=== PATIENT | female | born 1960 | race Caucasian/White ===

== ENCOUNTER → 2019-04-19 | Day surgery (SDC) | payer MEDICARE ==
[~2019-04-19] MED LIST: BACITRACIN 50,000 UNIT VIAL ONE; BENZONATATE100 MG PO; BUPIVACAINE HCL 0.5% INJ 30 ML VIAL INJ ONE; BUSPIRONE HCL5 MG PO; CEFAZOLIN SOD 1 GM/NS 50ML 100 ML IV ONE; DEPAKOTE500 MG PO; DEXAMETHASONE SOD PHOS INJ 4 MG/ML VIAL ONE; FENOFIBRATE145 MG PO; FENTANYL CITRATE/PF 100MCG/2 ML INJ ONE; GLIMEPIRIDE1 MG PO; IRBESARTAN-HCT1 EACH PO; KETOROLAC TROMETHAMINE 30 MG/ML VIAL ONE; LIDOCAINE HCL 2% LOCAL INJ 5 ML SDV VIAL INJ ONE; LITHIUM CARBON300 MG PO; METOPROLOL TART25 MG PO; MIDAZOLAM HCL 2 MG/2 ML VIAL ONE; MOVANTIK PO; NAPROXEN250 MG PO; ONDANSETRON HCL INJ 2MG/ML 2ML 2 MG/ML VIAL ONE; PANTOPRAZOLE SO40 MG PO; PRAVASTATIN SOD40 MG PO; PROPOFOL IV EMULSION 10 MG/ML 20 ML VIAL ONE; PROPRANOLOL HCL20 MG PO; RISPERDAL4 MG PO; SEROQUEL25 MG PO; SEVOFLURANE INHAL SOLN 250 ML PEN BTL ONE; TRAZODONE HCL100 MG PO; TRAZODONE HCL300 MG PO; TRAZODONE HCL50 MG PO; ULTRACET TABLE1 EACH PO; ULTRAM50 MG PO; VITAMIN D PO; ZANAFLEX2 M1 PO; ZETIA10 MG PO
--- OUTSIDE RECORDS SUMMARY | 2019-04-19 10:45 | XMS REPORT | Clinical Summary ---
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 Active traZODone (DESYREL) 150 Take 150 mg 1 MG tablet by mouth 8 nightly. Pt needs her night medications at 2100. Active pantoprazole (PROTONIX) Take 40 mg by 0 40 MG EC tablet mouth 2 (two) 8 times a day. Active MOVANTIK 25 mg tablet Take 25 mg by 5 tablet mouth 8 nightly. Pt needs her night medications at 2100. Active lithium (LITHOBID) 300 MG Take 300 mg 0 CR tablet by mouth 8 nightly. Pt needs her night medications at 2100. Active QUEtiapine (SEROquel) 300 Take 300 mg 1 MG tablet by mouth 8 nightly. Pt needs her night medications at 2100. Active busPIRone (BUSPAR) 10 MG Take 10 mg by 1 tablet mouth 2 (two) 8 times a day. Active traMADol (ULTRAM) 50 mg Take 50 mg by 0 tablet mouth daily 8 as needed. Active gabapentin (NEURONTIN) Take 100 mg 1 100 mg capsule by mouth 2 8 (two) times a day. Active ibuprofen (ADVIL,MOTRIN) Take 800 mg 0 800 MG tablet by mouth every 6 (six) hours as needed for mild pain. Active loratadine (CLARITIN) 10 Take 10 mg by 0 mg tablet mouth daily. Active cholecalciferol, vitamin Take 10,000 0 D3, (VITAMIN D3) 5,000 Units by unit tablet mouth daily. Active cyanocobalamin Take 3,000 0 (cyanocobalamin) 1000 MCG mcg by mouth tablet daily. Active biotin 10,000 mcg capsule Take 20,000 0 mcg by mouth nightly. Pt needs her night medications at 2100. Active lisinopril Take 1 tablet 30 tablet 0 (PRINIVIL,ZESTRIL) 10 mg (10 mg total) 8 tablet by mouth daily for 30 days. Active Problems Problem Noted Date Chest pain 01/03/2018 Social History Date Tobacco Use Types Packs/Day Years Used Current Every Day Smoker Cigarettes 0.5 15 Smokeless Tobacco: Never Used Tobacco Cessation: Ready to Quit: No; Counseling Given: Yes Drinks/Week oz/Week Comments Alcohol Use No Sex Assigned at Date Recorded Not on file Industry Job Start Date Occupation Not on file Not on file Not on file Travel End Travel History Travel Start No recent travel history available. 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
[2019-04-19 15:40] VITALS: BP 139/85
--- NOTE | 2019-04-21 01:53 | Operative Report ---
DATE OF PROCEDURE: 04/19/2019 SURGEON: Pascual Davenport MD PREOPERATIVE DIAGNOSIS: Bimalleolar equivalent right ankle fracture. POSTOPERATIVE DIAGNOSIS: Bimalleolar equivalent right ankle fracture. OPERATION/PROCEDURE PERFORMED: The patient underwent a closed reduction of the right ankle mortise followed by an open reduction and internal fixation of a right fibular fracture. INTRUSION ANALYST: There was no urology physician assistant. ANESTHESIA: General endotracheal intubation anesthesia. IV FLUIDS: As per the anesthesia record. BRIEF DESCRIPTION OF THE PATIENT'S OPERATIVE PROCEDURE: Ms. Carpenter was taken to the operating room, placed in supine position on the operating table. Following induction of general anesthesia as well as endotracheal intubation, the patient's right lower extremity was examined under anesthesia. She was found to have swelling and bruising about her ankle joint. Fluoroscopic evaluation of the ankle joint demonstrated a displaced fibular fracture with widening of the ankle mortise. The patient's lower extremity was prepped and draped in a standard surgical fashion. The case was begun by reducing the patient's ankle mortise in a closed fashion. An incision was then created directly over the fibula. This incision was carried through skin only. Blunt dissection was used to deepen the incision and care was taken to lift full-thickness flaps both anteriorly and posteriorly over the fibula. Care was also taken to protect the superficial peroneal nerve throughout this process. The patient's fracture site was identified. The fracture was cleaned. A fracture reduction clamp was used to reduce the fracture. A plate was contoured to the lateral aspect of the fibula. The plate was fixed to the tibia with combinations of cortical and cancellous screws. Repeat fluoroscopy of the ankle joint demonstrated full reduction of the ankle mortise and reestablishing the length and alignment of the fibula. The wound was copiously irrigated. The soft tissues were closed in a multilayer fashion. Sterile dressings were applied as well as a well-padded multisided splint. The patient was then awakened and taken to the postanesthesia care unit in stable condition. MD LANI RalphR/MODL /[id number]
== END | disposition home or self-care (01) ==
LOC: OR 10:41
PROVIDERS: ATTEND Specialist
DX: S82.841A Displaced bimalleolar fracture of right lower leg, initial encounter for closed fracture (principal); F31.9 Bipolar disorder, unspecified; M79.7 Fibromyalgia; K21.9 Gastro-esophageal reflux disease without esophagitis; I10 Essential (primary) hypertension; E78.5 Hyperlipidemia, unspecified; K58.9 Irritable bowel syndrome, unspecified; M85.80 Other specified disorders of bone density and structure, unspecified site; G47.30 Sleep apnea, unspecified; K46.9 Unspecified abdominal hernia without obstruction or gangrene; Z01.810 Encounter for preprocedural cardiovascular examination
CPT/HCPCS: 27814; 76000; 93005; C1713 ×5; J0690; J1100; J1885; J2001; J2250; J2405; J2704; J3010

== ENCOUNTER → 2019-08-30 | Outpatient (CLI) | payer MEDICARE ==
[~2019-08-30] MED LIST changes: -BACITRACIN 50,000 UNIT VIAL ONE; -BUPIVACAINE HCL 0.5% INJ 30 ML VIAL INJ ONE; -CEFAZOLIN SOD 1 GM/NS 50ML 100 ML IV ONE; -DEXAMETHASONE SOD PHOS INJ 4 MG/ML VIAL ONE; -FENTANYL CITRATE/PF 100MCG/2 ML INJ ONE; -KETOROLAC TROMETHAMINE 30 MG/ML VIAL ONE; -LIDOCAINE HCL 2% LOCAL INJ 5 ML SDV VIAL INJ ONE; -MIDAZOLAM HCL 2 MG/2 ML VIAL ONE; -ONDANSETRON HCL INJ 2MG/ML 2ML 2 MG/ML VIAL ONE; -PROPOFOL IV EMULSION 10 MG/ML 20 ML VIAL ONE; -SEVOFLURANE INHAL SOLN 250 ML PEN BTL ONE
== END ==
LOC: RAD 11:35
PROVIDERS: ATTEND Family Medicine
DX: Z01.818 Encounter for other preprocedural examination (principal); H26.9 Unspecified cataract
CPT/HCPCS: 93005

== ENCOUNTER 2020-04-04 10:57 | Inpatient (IN) | payer MEDICARE, OTHER ==
[2020-04-02 10:14] LABS: BASOPHILS # (AUTO) 0.1 (0.0-0.1); BASOPHILS % 0.7 % (0.0-1.0); EOSINOPHILS # (AUTO) 0.2 (0.0-0.4); EOSINOPHILS % 2.9 % (0.0-6.0); HEMATOCRIT 43.4 % (34.2-44.1); HEMOGLOBIN 13.9 g/dL (12.0-16.0); LYMPHOCYTES # (AUTO) 2.8 (1.0-3.2); LYMPHOCYTES % 34.6 % (18.0-39.1); MEAN CORPUSCULAR HEMOGLOBIN 28.6 pg (28-32); MEAN CORPUSCULAR VOLUME 89.3 fL (81-99); MONOCYTES # (AUTO) 0.6 (0.2-0.8); NEUTROPHILS # (AUTO) 4.4 (2.1-6.9); NEUTROPHILS % 54.6 % (38.7-80.0); PLATELET COUNT 370 x10e3/uL (140-360); RED BLOOD COUNT 4.86 x10e6/uL (3.6-5.1); RED CELL DISTRIBUTION WIDTH 12.9 % (11.7-14.4)
[2020-04-02 10:34] LABS: ALANINE AMINOTRANSFERASE 12 IU/L (0-55); ALBUMIN 4.4 g/dL (3.5-5.0); ALBUMIN/GLOBULIN RATIO 1.5 (0.8-2.0); ALKALINE PHOSPHATASE 75 IU/L (40-150); ANION GAP 15.3 mmol/L (8-16); BLOOD UREA NITROGEN 6 mg/dL (7-26); BUN/CREATININE RATIO 8 (6-25); CALCIUM 9.5 mg/dL (8.4-10.2); CARBON DIOXIDE 24 mmol/L (22-29); CHLORIDE 105 mmol/L (98-107); CREATININE, SERUM 0.78 mg/dL (0.57-1.11); EST GLOMERULAR FILTRATION RATE > 60 ML/MIN (60-); GLUCOSE 113 mg/dL (74-118); POTASSIUM 4.3 mmol/L (3.5-5.1); SODIUM 140 mmol/L (136-145)
[2020-04-04] VITALS (20 sets, daily range): BP systolic 77–161; BP diastolic 53–122
[~2020-04-04] VITALS: Ht 170.2 cm; Wt 79.1 kg
[2020-04-04] MEDS ORDERED: ALPRAZOLAM 0.5 MG TAB ONE (11:43)
[2020-04-04] MEDS ORDERED: DIPHENHYDRAMINE HCL 25 MG CAP ONE (11:44)
[2020-04-04] MEDS ORDERED: AMLODIPINE BESYL5 MG PO (12:14)
[2020-04-04] MEDS ORDERED: BUSPIRONE HCL5 MG PO (12:14)
[2020-04-04] MEDS ORDERED: BENZTROPINE ME0.5 MG PO (12:14)
[2020-04-04] MEDS ORDERED: MOVANTIK25 MG PO (12:14)
[2020-04-04] MEDS ORDERED: METOPROLOL SUCC25 MG PO (12:14)
[2020-04-04] MEDS ORDERED: MIDAZOLAM HCL 2 MG/2 ML VIAL ONE ×4 (12:19→15:36)
[2020-04-04] MEDS ORDERED: HEPARIN SOD/SOD CHLORIDE 2,000 ML ONE (12:19)
[2020-04-04] MEDS ORDERED: LIDOCAINE HCL 2% LOCAL 20 ML VIAL ONE (12:19)
[2020-04-04] MEDS ORDERED: HEPARIN SOD (PORCINE) 1000 UNIT/ML 30ML ONE (12:19)
[2020-04-04] MEDS ORDERED: FENTANYL CITRATE/PF 100MCG/2 ML INJ ONE ×6 (12:19→19:58)
[2020-04-04] MEDS ORDERED: SODIUM CHLORIDE 0.9% 1000ML 1,000 ML ONE ×2 (12:20→15:22)
[2020-04-04] MEDS ORDERED: IOPAMIDOL 300MG/ML 100 ML INFUS..BTL IV ONE (12:20)
[2020-04-04] MEDS ORDERED: ASPIRIN 325 MG TAB ONE (13:07)
[2020-04-04] MEDS ORDERED: PRASUGREL 10 MG TAB ONE (13:07)
[2020-04-04] MEDS ORDERED: MORPHINE SULFATE INJ 4 MG/ML INJ 1ML ONE (15:17)
[2020-04-04 15:26] LABS: HEMATOCRIT 43.6 % (34.2-44.1); HEMOGLOBIN 13.8 g/dL (12.0-16.0)
[2020-04-04] MEDS ORDERED: LABETALOL HCL 20 ML ONE (15:39)
[2020-04-04] MEDS ORDERED: SODIUM CHLORIDE 0.9% 250ML 250 ML IV ONE (16:00)
[2020-04-04] MEDS ORDERED: SODIUM CHLORIDE 0.9% 50ML 50 ML ONE (17:55)
[2020-04-04] MEDS ORDERED: IOPAMIDOL 370 MG/ML 200 ML INFUS..BTL INJ ONE (17:55)
[2020-04-04] MEDS ORDERED: DEXAMETHASONE SOD PHOS INJ 4 MG/ML VIAL ONE (18:09)
[2020-04-04] MEDS ORDERED: EPHEDRINE SULFATE INJ 50 MG/ML VIAL ONE (18:09)
[2020-04-04] MEDS ORDERED: ETOMIDATE 2 MG/ML 10 ML INJ IV ONE (18:09)
[2020-04-04] MEDS ORDERED: ROCURONIUM BROMIDE 10 MG/ML 5ML VIAL IV ONE (18:09)
[2020-04-04] MEDS ORDERED: ONDANSETRON HCL INJ 2MG/ML 2ML 2 MG/ML VIAL ONE ×2 (18:09→18:31)
[2020-04-04] MEDS ORDERED: SEVOFLURANE INHAL SOLN 250 ML PEN BTL ONE (18:09)
[2020-04-04] MEDS ORDERED: ONDANSETRON HCL INJ 2MG/ML 2ML 2 MG/ML VIAL IV PRN (18:45)
[2020-04-04] MEDS ORDERED: HYDROCODONE/APAP 7.5MG-325MG 1 EA TAB PO PRN (18:45)
[2020-04-04] MEDS ORDERED: HYDROMORPHONE 1MG/1ML INJ IV PRN (18:45)
[2020-04-04] MEDS: NALOXEGOL OXALATE 25 MG PO SCH (21:00)
[2020-04-04] MEDS ORDERED: PANTOPRAZOLE 40 MG 10ML VIAL IV SCH (21:00)
[2020-04-04] MEDS: AMLODIPINE BESYLATE 5 MG TAB PO SCH (21:00)
[2020-04-04] MEDS: SODIUM CHLORIDE 0.9% 1000ML 1,000 ML IV SCH (22:54)
[2020-04-04] MEDS: LITHIUM CARBONATE 150 MG CAPSULE PO SCH (22:54)
[2020-04-04] MEDS: CEFTRIAXONE SOD 1 GM/NS 50 ML 50 ML IV SCH (22:54)
[2020-04-04] MEDS: TRAZODONE HCL 50 MG TAB PO SCH (22:54)
[2020-04-04] MEDS: QUETIAPINE FUMARATE 100 MG TAB PO SCH (22:55)
[2020-04-04] MEDS: EZETIMIBE 10 MG TAB PO SCH (22:56)
[2020-04-05] VITALS (14 sets, daily range): BP systolic 77–139; BP diastolic 32–77
[2020-04-05 05:13] LABS: BASOPHILS % 0.2 % (0.0-1.0); HEMATOCRIT 33.1 % (34.2-44.1); HEMOGLOBIN 10.7 g/dL (12.0-16.0); LYMPHOCYTES # (AUTO) 0.9 (1.0-3.2); LYMPHOCYTES % 9.1 % (18.0-39.1); MEAN CORPUSCULAR HGB CONC 32.3 g/dL (31-35); MEAN CORPUSCULAR VOLUME 89.7 fL (81-99); MONOCYTES # (AUTO) 0.6 (0.2-0.8); MONOCYTES % 6.4 % (4.4-11.3); NEUTROPHILS # (AUTO) 8.2 (2.1-6.9); NEUTROPHILS % 83.7 % (38.7-80.0); PLATELET COUNT 288 x10e3/uL (140-360); RED BLOOD COUNT 3.69 x10e6/uL (3.6-5.1); RED CELL DISTRIBUTION WIDTH 14.3 % (11.7-14.4)
[2020-04-05 05:45] LABS: INR 1.02; PROTHROMBIN TIME 13.9 seconds (11.9-14.5)
[2020-04-05 05:46] LABS: PARTIAL THROMBOPLASTIN TIME 25.5 seconds (23.8-35.5)
[2020-04-05 05:53] LABS: ANION GAP 15.1 mmol/L (8-16); BLOOD UREA NITROGEN 11 mg/dL (7-26); BUN/CREATININE RATIO 16 (6-25); CALCIUM 8.2 mg/dL (8.4-10.2); CARBON DIOXIDE 18 mmol/L (22-29); CHLORIDE 112 mmol/L (98-107); EST GLOMERULAR FILTRATION RATE > 60 ML/MIN (60-); GLUCOSE 143 mg/dL (74-118); POTASSIUM 4.1 mmol/L (3.5-5.1); SODIUM 141 mmol/L (136-145)
[2020-04-05] MEDS: METOPROLOL SUCCINATE 25 MG TAB XL PO SCH (09:00)
[2020-04-05] MEDS ORDERED: METOPROLOL SUCCINATE 25 MG TAB XL PO SCH (09:00)
[2020-04-05] MEDS: BENZTROPINE MESYLATE 1 MG TAB PO SCH ×2 (09:00→16:57)
[2020-04-05] MEDS: BUSPIRONE HCL 5 MG TAB PO SCH ×2 (10:01→16:57)
[2020-04-05] MEDS ORDERED: LITHOBID300 MG PO (10:08)
[2020-04-05] MEDS: SODIUM CHLORIDE 0.9% 1000ML 1,000 ML IV SCH ×3 (10:35→20:46)
[2020-04-05] MEDS: LITHIUM CARBONATE ER 300 MG TAB PO SCH (10:58)
[2020-04-05] MEDS ORDERED: ONDANSETRON HCL 4 MG ORAL DISINTEGRATING TAB PO PRN (12:15)
[2020-04-05] MEDS: QUETIAPINE FUMARATE 100 MG TAB PO SCH (21:00)
[2020-04-05] MEDS: NALOXEGOL OXALATE 25 MG PO SCH (21:00)
[2020-04-05] MEDS: CEFTRIAXONE SOD 1 GM/NS 50 ML 50 ML IV SCH (21:33)
[2020-04-05] MEDS: TRAZODONE HCL 50 MG TAB PO SCH (21:33)
[2020-04-05] MEDS: LITHIUM CARBONATE 150 MG CAPSULE PO SCH (21:33)
[2020-04-05] MEDS: EZETIMIBE 10 MG TAB PO SCH (21:34)
[2020-04-05] MEDS: AMLODIPINE BESYLATE 5 MG TAB PO SCH (21:54)
[2020-04-06] MEDS: SODIUM CHLORIDE 0.9% 1000ML 1,000 ML IV SCH ×4 (03:00→17:19)
[2020-04-06 05:36] VITALS: BP 111/61
[2020-04-06 08:00] VITALS: BP 116/49
[2020-04-06] MEDS: BUSPIRONE HCL 5 MG TAB PO SCH ×2 (08:20→17:19)
[2020-04-06] MEDS: BENZTROPINE MESYLATE 1 MG TAB PO SCH ×2 (08:20→17:19)
[2020-04-06] MEDS: PANTOPRAZOLE SOD 40 MG TABEC PO SCH (08:20)
[2020-04-06 08:35] VITALS: BP 116/49
[2020-04-06] MEDS: METOPROLOL SUCCINATE 25 MG TAB XL PO SCH (09:00)
[2020-04-06 09:19] LABS: BASOPHILS % 0.4 % (0.0-1.0); EOSINOPHILS # (AUTO) 0.2 (0.0-0.4); EOSINOPHILS % 1.7 % (0.0-6.0); HEMATOCRIT 29.2 % (34.2-44.1); HEMOGLOBIN 9.3 g/dL (12.0-16.0); LYMPHOCYTES # (AUTO) 2.7 (1.0-3.2); LYMPHOCYTES % 24.4 % (18.0-39.1); MEAN CORPUSCULAR HEMOGLOBIN 28.9 pg (28-32); MEAN CORPUSCULAR HGB CONC 31.8 g/dL (31-35); MEAN CORPUSCULAR VOLUME 90.7 fL (81-99); MONOCYTES # (AUTO) 0.9 (0.2-0.8); MONOCYTES % 8.3 % (4.4-11.3); NEUTROPHILS # (AUTO) 7.1 (2.1-6.9); NEUTROPHILS % 64.7 % (38.7-80.0); PLATELET COUNT 286 x10e3/uL (140-360); RED BLOOD COUNT 3.22 x10e6/uL (3.6-5.1); RED CELL DISTRIBUTION WIDTH 14.2 % (11.7-14.4)
[2020-04-06 09:35] LABS: ANION GAP 14.3 mmol/L (8-16); BLOOD UREA NITROGEN 7 mg/dL (7-26); BUN/CREATININE RATIO 11 (6-25); CALCIUM 8.2 mg/dL (8.4-10.2); CARBON DIOXIDE 21 mmol/L (22-29); CHLORIDE 109 mmol/L (98-107); CREATININE, SERUM 0.61 mg/dL (0.57-1.11); EST GLOMERULAR FILTRATION RATE > 60 ML/MIN (60-); GLUCOSE 93 mg/dL (74-118); POTASSIUM 3.3 mmol/L (3.5-5.1); SODIUM 141 mmol/L (136-145)
[2020-04-06 11:49] VITALS: BP 132/74
[2020-04-06] MEDS: LITHIUM CARBONATE ER 300 MG TAB PO SCH (12:29)
[2020-04-06] MEDS: TRAMADOL HCL 50 MG TAB PO PRN (19:21)
[2020-04-06 20:00] VITALS: BP 132/115
[2020-04-06] MEDS: NALOXEGOL OXALATE 25 MG PO SCH (21:00)
[2020-04-06] MEDS: LITHIUM CARBONATE 150 MG CAPSULE PO SCH (21:10)
[2020-04-06] MEDS: EZETIMIBE 10 MG TAB PO SCH (21:10)
[2020-04-06] MEDS: CEFTRIAXONE SOD 1 GM/NS 50 ML 50 ML IV SCH (21:10)
[2020-04-06] MEDS: QUETIAPINE FUMARATE 100 MG TAB PO SCH (21:10)
[2020-04-06] MEDS: AMLODIPINE BESYLATE 5 MG TAB PO SCH (21:10)
[2020-04-06] MEDS: TRAZODONE HCL 50 MG TAB PO SCH (21:10)
[2020-04-06 22:04] VITALS: BP 132/115
[2020-04-07] VITALS (8 sets, daily range): BP systolic 105–138; BP diastolic 53–78
[2020-04-07] MEDS: PANTOPRAZOLE SOD 40 MG TABEC PO SCH (08:55)
[2020-04-07] MEDS: LITHIUM CARBONATE ER 300 MG TAB PO SCH (08:55)
[2020-04-07] MEDS: METOPROLOL SUCCINATE 25 MG TAB XL PO SCH (08:56)
[2020-04-07] MEDS: BUSPIRONE HCL 5 MG TAB PO SCH ×2 (08:56→16:47)
[2020-04-07] MEDS: BENZTROPINE MESYLATE 1 MG TAB PO SCH ×2 (08:58→16:47)
[2020-04-07 09:11] LABS: BASOPHILS % 0.5 % (0.0-1.0); EOSINOPHILS # (AUTO) 0.2 (0.0-0.4); EOSINOPHILS % 2.3 % (0.0-6.0); HEMATOCRIT 27.2 % (34.2-44.1); HEMOGLOBIN 8.6 g/dL (12.0-16.0); LYMPHOCYTES # (AUTO) 1.9 (1.0-3.2); LYMPHOCYTES % 21.6 % (18.0-39.1); MEAN CORPUSCULAR HEMOGLOBIN 28.8 pg (28-32); MEAN CORPUSCULAR HGB CONC 31.6 g/dL (31-35); MONOCYTES # (AUTO) 0.9 (0.2-0.8); MONOCYTES % 10.3 % (4.4-11.3); NEUTROPHILS # (AUTO) 5.8 (2.1-6.9); NEUTROPHILS % 65.1 % (38.7-80.0); PLATELET COUNT 270 x10e3/uL (140-360); RED BLOOD COUNT 2.99 x10e6/uL (3.6-5.1); RED CELL DISTRIBUTION WIDTH 14.1 % (11.7-14.4)
[2020-04-07 09:28] LABS: ANION GAP 13.5 mmol/L (8-16); BLOOD UREA NITROGEN 6 mg/dL (7-26); BUN/CREATININE RATIO 10 (6-25); CALCIUM 8.2 mg/dL (8.4-10.2); CARBON DIOXIDE 22 mmol/L (22-29); CHLORIDE 107 mmol/L (98-107); CREATININE, SERUM 0.62 mg/dL (0.57-1.11); EST GLOMERULAR FILTRATION RATE > 60 ML/MIN (60-); GLUCOSE 96 mg/dL (74-118); POTASSIUM 3.5 mmol/L (3.5-5.1); SODIUM 139 mmol/L (136-145)
[2020-04-07] MEDS: SODIUM CHLORIDE 0.9% 1000ML 1,000 ML IV SCH (11:44)
[2020-04-07] MEDS ORDERED: LACTULOSE SYRUP 20 GM/30 ML UDC PO ONE (13:00)
[2020-04-07] MEDS ORDERED: DOCUSATE SODIUM 100 MG CAP PO PRN (13:00)
[2020-04-07] MEDS: TRAZODONE HCL 50 MG TAB PO SCH (20:59)
[2020-04-07] MEDS: CEFTRIAXONE SOD 1 GM/NS 50 ML 50 ML IV SCH (20:59)
[2020-04-07] MEDS: LITHIUM CARBONATE 150 MG CAPSULE PO SCH (20:59)
[2020-04-07] MEDS: QUETIAPINE FUMARATE 100 MG TAB PO SCH (21:00)
[2020-04-07] MEDS: NALOXEGOL OXALATE 25 MG PO SCH (21:00)
[2020-04-07] MEDS: AMLODIPINE BESYLATE 5 MG TAB PO SCH (21:00)
[2020-04-07] MEDS: EZETIMIBE 10 MG TAB PO SCH (21:00)
[2020-04-08] VITALS (8 sets, daily range): BP systolic 111–133; BP diastolic 63–80
[2020-04-08] MEDS: PANTOPRAZOLE SOD 40 MG TABEC PO SCH (08:30)
[2020-04-08] MEDS: BUSPIRONE HCL 5 MG TAB PO SCH ×2 (08:58→16:48)
[2020-04-08] MEDS: LITHIUM CARBONATE ER 300 MG TAB PO SCH (09:00)
[2020-04-08] MEDS: BENZTROPINE MESYLATE 1 MG TAB PO SCH ×2 (09:00→16:48)
[2020-04-08] MEDS: METOPROLOL SUCCINATE 25 MG TAB XL PO SCH (09:01)
[2020-04-08] MEDS: TRAMADOL HCL 50 MG TAB PO PRN (09:06)
[2020-04-08] MEDS: HYDROMORPHONE 1MG/1ML INJ IV PRN ×2 (15:29→20:25)
[2020-04-08] MEDS: NALOXEGOL OXALATE 25 MG PO SCH (20:08)
[2020-04-08] MEDS: CEFTRIAXONE SOD 1 GM/NS 50 ML 50 ML IV SCH (20:25)
[2020-04-08] MEDS: LITHIUM CARBONATE 150 MG CAPSULE PO SCH (20:25)
[2020-04-08] MEDS: EZETIMIBE 10 MG TAB PO SCH (20:25)
[2020-04-08] MEDS: QUETIAPINE FUMARATE 100 MG TAB PO SCH (20:25)
[2020-04-08] MEDS: TRAZODONE HCL 50 MG TAB PO SCH (20:25)
[2020-04-08] MEDS: AMLODIPINE BESYLATE 5 MG TAB PO SCH (20:25)
[2020-04-09] VITALS: BP 88/48
[2020-04-09 04:00] VITALS: BP 121/59
== END 2020-04-09 06:35 | disposition home or self-care (01) | DRG 270 ==
LOC: CATH LAB 10:57 → ICU 20:03 → MED/SURG2 04-05 11:00
PROVIDERS: ADMIT Internal Medicine Interventional Cardiology; ATTEND Internal Medicine Interventional Cardiology
PROC: 04QK0ZZ Repair Right Femoral Artery, Open Approach (ICD-10-PCS; 2020-04-04)
PROC: 04CL3ZZ Extirpation of Matter from Left Femoral Artery, Percutaneous Approach (ICD-10-PCS; 2020-04-04)
PROC: 047L3ZZ Dilation of Left Femoral Artery, Percutaneous Approach (ICD-10-PCS; 2020-04-04)
PROC: B4101ZZ Fluoroscopy of Abdominal Aorta using Low Osmolar Contrast (ICD-10-PCS; 2020-04-04)
PROC: 0Y950ZZ Drainage of Right Inguinal Region, Open Approach (ICD-10-PCS; principal; 2020-04-04 15:00)
DX: I70.212 Atherosclerosis of native arteries of extremities with intermittent claudication, left leg (principal); S75.011A Minor laceration of femoral artery, right leg, initial encounter; L76.32 Postprocedural hematoma of skin and subcutaneous tissue following other procedure; T81.718A Complication of other artery following a procedure, not elsewhere classified, initial encounter; I10 Essential (primary) hypertension; F17.200 Nicotine dependence, unspecified, uncomplicated; E78.5 Hyperlipidemia, unspecified; Z11.59 Encounter for screening for other viral diseases
CPT/HCPCS: 36247; 36415; 37225; 74177; 75625; 75716; 80048; 80053; 85014; 85018; 85025; 85610; 85730; 86850; 86900; 86920; 96361; 99152; 99153; C1714; C1760; C1766; C1887; C2623; J0696; J1100; J1170; J1644; J2001; J2250; J2270; J2405; J3010; J7030; P9016; Q9967; U0002

== ENCOUNTER → 2021-03-21 | Day surgery (SDC) | payer MEDICARE ==
[2021-03-20 08:43] LABS: BASOPHILS # (AUTO) 0.1 (0.0-0.1); BASOPHILS % 0.7 % (0.0-1.0); EOSINOPHILS # (AUTO) 0.2 (0.0-0.4); HEMATOCRIT 43.8 % (34.2-44.1); HEMOGLOBIN 13.9 g/dL (12.0-16.0); LYMPHOCYTES # (AUTO) 1.4 (1.0-3.2); LYMPHOCYTES % 18.5 % (18.0-39.1); MEAN CORPUSCULAR HGB CONC 31.7 g/dL (31-35); MEAN CORPUSCULAR VOLUME 88.3 fL (81-99); MONOCYTES # (AUTO) 0.7 (0.2-0.8); MONOCYTES % 8.9 % (4.4-11.3); NEUTROPHILS # (AUTO) 5.1 (2.1-6.9); NEUTROPHILS % 69.5 % (38.7-80.0); PLATELET COUNT 383 x10e3/uL (140-360); RED BLOOD COUNT 4.96 x10e6/uL (3.6-5.1); RED CELL DISTRIBUTION WIDTH 13.1 % (11.7-14.4)
[2021-03-20 09:10] LABS: ALBUMIN 3.9 g/dL (3.5-5.0); ALBUMIN/GLOBULIN RATIO 1.1 (0.8-2.0); ANION GAP 13.9 mmol/L (8-16); CALCIUM 9.6 mg/dL (8.4-10.2); CREATININE, SERUM 0.78 mg/dL (0.57-1.11); POTASSIUM 4.9 mmol/L (3.5-5.1)
[~2021-03-21] MED LIST changes: +AMLODIPINE BESYL5 MG PO; +BENZTROPINE ME0.5 MG PO; +BUPIVACAINE 0.25% 30ML SDV ONE; +DEXAMETHASONE SOD PHOS INJ 4 MG/ML SDV ONE; +FENTANYL CITRATE/PF 100MCG/2 ML INJ ONE; +GLYCOPYRROLATE INJ 0.2 MG/ML VIAL ONE; +LIDOCAINE HCL 2% LOCAL INJ 5 ML SDV VIAL INJ ONE; +LITHOBID300 MG PO; +METOPROLOL SUCC25 MG PO; +MOVANTIK25 MG PO; +NEURONTIN300 MG PO; +ONDANSETRON HCL INJ 2MG/ML 2ML 2 MG/ML VIAL ONE; +POVIDONE IODINE 0.05% 0.05 % ML PO ONE; +PRAVASTATIN SOD10 MG; +PROPOFOL IV EMULSION 10 MG/ML 20 ML VIAL ONE; +QUETIAPINE FUMA25 MG PO; +SEVOFLURANE INHAL SOLN 250 ML PEN BTL ONE
[2021-03-21 13:35] VITALS: BP 145/81
== END | disposition home or self-care (01) ==
LOC: OR 07:29
PROVIDERS: ATTEND Surgery
DX: R22.41 Localized swelling, mass and lump, right lower limb (principal); F41.9 Anxiety disorder, unspecified; I10 Essential (primary) hypertension; F17.200 Nicotine dependence, unspecified, uncomplicated; K58.9 Irritable bowel syndrome, unspecified; K44.9 Diaphragmatic hernia without obstruction or gangrene; K21.9 Gastro-esophageal reflux disease without esophagitis; I25.10 Atherosclerotic heart disease of native coronary artery without angina pectoris; Z01.810 Encounter for preprocedural cardiovascular examination; Z01.812 Encounter for preprocedural laboratory examination; Z01.818 Encounter for other preprocedural examination; Z20.822 Contact with and (suspected) exposure to COVID-19; Z88.5 Allergy status to narcotic agent
CPT/HCPCS: 27337; 36415; 71046; 80053; 85025; 93005; J1100; J2001; J2405; J2704; J3010; U0002